=== PATIENT | female | born 1980 | race Caucasian/White ===

== ENCOUNTER 2022-12-08 10:09 | Emergency (ER) | payer OTHER, SELFPAY ==
[2022-12-08 10:26] VITALS: BP 109/80; PULSE 81; RESP 16; TEMP 36.7; O2SAT 100
--- NOTE | 2022-12-08 10:33 | ED.SKABFB ---
HPI - Skin/Abscess/Foreign Bdy General Chief complaint: Skin/Abscess/Foreign Body Stated complaint: Bump above Tailbone Time Seen by Provider: 12/08/22 10:23 Source: patient and RN notes reviewed Mode of arrival: ambulatory Limitations: no limitations History of Present Illness HPI narrative: Patient presents today complaining a painful bump in her tailbone area. States the area became painful in August, but resolved on its own with warm compresses, but returned 2 days ago after sitting for long periods of time at. She currently rates her pain 1/10 while standing, but this increases to 7/10 with sitting. She has tried no dims-wlb-iqenlbm interventions at this time prior to arrival. No history of abscesses/ boils. Related Data Home Medications Medication Instructions Recorded Confirmed armodafinil 250 mg tablet 250 mg PO QAM 03/16/21 12/08/22 aspirin 81 mg tablet,delayed 81 mg PO DAILY 03/16/21 12/08/22 release (Adult Aspirin Regimen) cholecalciferol (vitamin D3) 50 50 mcg PO DAILY 03/16/21 12/08/22 mcg (2,000 unit) chewable tablet ferrous sulfate 27 mg iron tablet 27 mg PO DAILY 03/16/21 12/08/22 fingolimod 0.5 mg capsule (Re[employer]) 0.5 mg PO DAILY 03/16/21 12/08/22 levetiracetam 1,000 mg tablet 1,000 mg PO Q12H 03/16/21 12/08/22 sertraline 100 mg tablet 100 mg PO DAILY 03/16/21 12/08/22 multivit with minerals-iron 18 1 tablet PO DAILY 12/08/22 12/08/22 mg-folic ac 400 mcg-vit K 25 mcg tablet (Adults Multivitamin) vitamin B complex (B 1 tablet PO DAILY 12/08/22 12/08/22 Complex-Vitamin B12 tablet) Allergies Allergy/AdvReac Type Severity Reaction Status Date / Time amoxicillin Allergy Hives Verified 12/08/22 10:28 Penicillins Allergy Hives Verified 03/16/21 15:38 Sulfa (Sulfonamide Allergy Hives Verified 03/16/21 15:38 Antibiotics) Review of Systems Review of Systems: CONSTITUTIONAL: Denies body aches, fever, chills, or sweats. EYES: Denies visual changes, redness, or discharge. ENT: Denies rhinorrhea, congestion, sore throat, or otalgia. CARDIOVASCULAR: Denies chest pain, palpitations, or edema. RESPIRATORY: Denies cough or dyspnea. GASTROINTESTINAL: Denies abdominal pain, nausea, vomiting, or diarrhea. GENITOURINARY: Denies dysuria or hematuria. SKIN: + painful lump MUSCULOSKELETAL: Denies back pain, joint pain, or myalgia. NEUROLOGIC: Denies headache, numbness, tingling, or weakness. PSYCH: Denies depression or anxiety. [facility] Past Medical History Medical History History of cerebral hemorrhage History of seizure Multiple sclerosis Surgical History Surgical History History of bilateral breast reduction surgery History of delivery History of endometrial ablation History of tonsillectomy Family History Family History Mother Lung cancer Father Pulmonary embolism Social History Social History Smoking status: Never smoker Comments At time of signature, I have reviewed and agree with nursing past medical, surgical, social and family history unless otherwise noted. Please see nursing chart for further information. There is no relevant family history pertinent to the presenting complaint Exam Narrative: GENERAL: Well-appearing, well-nourished, and in no acute distress. HEAD: Normocephalic, atraumatic. EYES: EOMI. No redness or drainage. Conjunctivae normal. ENT: Mucous membranes pink and moist. NECK: Normal AROM. CHEST: No respiratory distress. EXTREMITIES: Normal range of motion. No edema. SKIN: Warm, dry, no rash. Capillary refill normal. Normal skin turgor. 2 cm erythematous slightly fluctuant lesion to the gluteal cleft that is tender to palpation. NEURO: No focal deficits. Alert and oriented x3. Gait steady. PSYCH:
[2022-12-08 10:36] VITALS: BP 109/80; PULSE 81; RESP 16; TEMP 36.7; O2SAT 100
== END 2022-12-08 11:05 | disposition home or self-care (01) ==
PROVIDERS: Emergency Provider Nurse Practitioner
DX: L05.01 Pilonidal cyst with abscess (principal); G40.909 Epilepsy, unspecified, not intractable, without status epilepticus; G35 Multiple sclerosis
CPT/HCPCS: 10080; 99213; G0463

== ENCOUNTER 2024-03-06 08:23 | Outpatient (CLI) | payer OTHER, SELFPAY ==
[2024-03-06 21:15] LABS: Cholesterol 227 mg/dL (0-200); HDL Direct 78 mg/dL; Triglycerides 63 mg/dL (<150)
[2024-03-06 21:26] LABS: LDL Cholesterol Direct 111 mg/dL
== END 2024-03-06 08:24 | disposition home or self-care (01) ==
LOC: ANHGOSHLAB 08:25
PROVIDERS: PCP Nurse Practitioner; Visit Provider Nurse Practitioner
DX: E78.5 Hyperlipidemia, unspecified (principal)
CPT/HCPCS: 36415; 80061; 82172

== ENCOUNTER 2024-10-15 08:53 | Outpatient (CLI) | payer OTHER, SELFPAY ==
--- OUTSIDE RECORDS SUMMARY | 2024-10-15 09:19 | XMS_ITS | Clinical Summary ---
Author Organization [facility] [place] Address [address] [place] [address] Phone Care Team Providers Care Driller And Reamer Name Role Phone Dillon Lai MD Primary Care Provider [phone] Allergies Active Allergy Reactions Criticality Noted Date Comments Penicillins Hives High 01/24/2011 Sulfa (Sulfonamide Antibiotics) Hives High 12/31 Medications levetiracetam (KEPPRA) 1,000 mg Oral tablet Take 500 mg by mouth 2 times daily. Active INTERFERON BETA-1B (BETASERON SUBCUT) Inject by subcutaneous injection. Active aspirin (ASPIR-LOW) 81 mg Oral TbEC Take 81 mg by mouth daily. Active VIT/FE FUMARATE/FA ( ORAL) Take by mouth. Active citalopram (CELEXA) 10 mg Oral tablet Take 10 mg by mouth daily. Active BIOTIN ORAL Take by mouth. Act rivas ARMODAFINIL (NUVIGIL ORAL) Take by mouth. For fatigue Active ERGOCALCIFEROL, VITAMIN D2, (VITAMIN D ORAL) Take by mouth. Activ e Active Problems Problem Noted Date Diagnosed Date Multiple sclerosis Subarchnoid hemorrhage-brief coma Seizure disorder Blood clotting disorder Overview (01/24/2011): Heterozygous for Factor II mutation Encounters Date Type Department Care Team Description 10/01/2024 External Device Data [facility]STRACTION Provider, Abstract 09/24/2024 External Device Data [facility] Provider, Abstract 09/19/2024 External Device Data [facility] Provider, Abstract 07/17/2024 External Device Data [facility] Provider, Abstract from Last 3 Months Immunizations Immunization Administration Dates Next Due Skin Test TB 01/20/2011 Family History Medical History Relation Name Comments Stroke Father Relation Name Status Comments Father Social History Tobacco Use Types Packs/Day Years Used Date Smoking Tobacco: Never Smokeless Tobacco: Never Alcohol Use Standard Drinks/Week Comments Yes 4.2 (1 standard drink = 0.6 oz p ure alcohol) Comments No Sex and Gender Information Value Date Recorded Sex Assigned at Not on file Legal Sex 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 Gender Identity Not on file Sexual Orientation Not on file Last Filed Vital Signs Vital Sign Reading Time Taken Comments Blood Pressure 96/68 08/27/2012 1:48 PM CDT Pulse - - Temperature - - Respiratory Rate - - Oxygen Saturation - - Inhaled Oxygen Concentration - - Weight 68 kg (150 lb) 08/27/2012 1:48 PM CDT Height 172.7 cm (5' 8) 08/27/2012 1:48 PM CDT Body Mass Index 22.81 08/27/2012 1:48 PM CDT Plan of Treatment Upcoming Encounters Date Type Department Care Team (Late st Contact Info) Description 12/06/2024 1:00 PM CDT Office Visit [facility] Ear Nose and Throat [address] [address] Wild Presley MD [address] [facility] [facility] [address] [place] [address] Health Maintenance Due Date Last Done Comments HEPATITIS B VACCINES (1 of 3 - 19+ 3-dose series) 2000 HPV/Cotest (21-29) 2002 CERVICAL CANCER SCREENING 10/14/2011 HPV/Cotest (30-65) 10/14/2011 PAP SMEAR 10/14/2011 INFLUENZA VACCINE (#1) 2023 , 02/04/2018, 02/09/2017, Additional history exists DTAP/TDAP/TD VACCINES (2 - Td or Tdap) 03/03/2024 03/03/2014 Preventative Visit- Commercial 05/01/2024 BREAST CANCER SCREENING 11/29/2024 11/30/19 24, 11/13/2023, 11/13/2023 HPV VACCINES Aged Out No longer eligi ble based on patient's age to complete this topic Procedures Procedure Name Priority Date/Time Associated Diagnosis Comments MAMMO DIAG UNI LEFT 3D DEE W OR WO CAD Routine 11/30/2023 8:10 AM CDT Mammogram abnormal from Last 3 Months or Most Recently Relevant to Health Maintenance Results * MAMMO 3D DEE DIAGNOSTIC UNI LT W OR WO CAD (11/30/2023 8:10 AM CDT) Anatomical Region Laterality Modality Breast Left Mammography 11/30/2023 8:10 AM CDT Impressions 11/30/2023 12:34 PM CDT IMPRESSION: No evidence of mass lesion. The area of interest likely represents normal fibroglandular tissue. RECOMMENDATIONS: Bilateral annual screening mammogram. LEFT BREAST OVERALL ASSESSMENT: BI-RADS Category 1. Negative. DICTATION LOCATION: Location [address] [place] [address] 11/30/2023 12:34 PM CDT MAMMOGRAPHY DIGITAL DIAGNOSTIC UNILATERAL LEFT 3-D TOMOGRAPHY WITH OR WITHOUT CAD AND LEFT BREAST ULTRASOUND LIMITED 11/30/2023. HISTORY: The outside mammogram dated 11/13/2023 showed asymmetry in the upper-outer quadrant of the left breast. LEFT MAMMOGRAPHIC FINDINGS: There are scattered fibroglandular tissues in the left breast. The asymmetry in the upper outer quadrant of the left breast is again seen from the middle to posterior depth. It appears to represent normal fibroglandular tissue. No discrete mass or architectural distortion is identified. LEFT BREAST ULTRASOUND FINDINGS: The hand-held targeted ultrasound was performed with particular attention in the upper outer quadrant. No solid or cystic mass is seen. Procedure Note Arlin Mccauley MD - 11/30/2023 MAMMOGRAPHY DIGITAL DIAGNOSTIC UNILATERAL LEFT 3-D TOMOGRAPHY WITH OR WITHOUT CAD AND LEFT BREAST ULTRASOUND LIMITED 11/30/2023. HISTORY: The outside mammogram dated 11/13/2023 showed asymmetry in the upper-outer quadrant of the left breast. LEFT MAMMOGRAPHIC FINDINGS: There are scattered fibroglandular tissues in the left breast. The asymmetry in the upper outer quadrant of the left breast is again seen from the middle to posterior depth. It appears to represent normal fibroglandular tissue. No discrete mass or architectural distortion is identified. LEFT BREAST ULTRASOUND FINDINGS: The hand-held targeted ultrasound was performed with particular attention in the upper outer quadrant. No solid or cystic mass is seen. IMPRESSION: No evidence of mass lesion. The area of interest likely represents normal fibroglandular tissue. RECOMMENDATIONS: Bilateral annual screening mammogram. LEFT BREAST OVERALL ASSESSMENT: BI-RADS Category 1. Negative. DICTATION LOCATION: Location - [facility] Lei Mohan MD MAMMO ORDERABLES Final Result from Last 3 Months or Most Recently Relevant to Health Maintenance Insurance [place] [id number] Care Teams Driller And Reamer Relationship Specialty Start Date End Date Dillon Lai MD PCP - General Internal Medicine 01/18/11
--- OUTSIDE RECORDS SUMMARY | 2024-10-15 09:19 | XMS_ITS | Clinical Summary ---
Author Organization [facility] Address [address] [place] [address] Care Team Providers Care Shoe Fitter Name Role Phone Unknown, Provider Primary Care Provider Unavaila ble Source Comments [facility],non-owned Affiliates and Associated Physician Practices is amultiple site organization consisting of ambulatory clinics and hospital sitesin [place], [place], [place] and [place]. This disclosure is being madepursuant to the Care Everywhere program and may not contain all information available regarding this patient. Last updated 18.[facility] [employer] Allergies Active Allergy Reactions Criticality Noted Date Comments Penicillins 02/23/2017 Sulfa Drugs 02/23/2017 Medications * Be aware that medications may not be up to date on this document. Alwaysverify current medications with the patient. aspirin (ASPIRIN) 81 MG tablet Take 81 mg by mouth once daily Active SERTRALINE HCL PO Active Cholecalciferol (VITAMIN D PO) Activ e levETIRAcetam (KEPPRA) 1000 MG tablet Take 1,000 mg by mouth 2 times daily Active Fingolimod HCl (GILENYA PO) Active Multiple Vitamin (MULTI VITAMIN PO) Active Armodafinil (NUVIGIL PO) Active MAGNESIUM PO Take 1,200 mg by mouth daily Active ferrous sulfate 325 (65 FE) MG tablet Take by mouth once daily Active rOPINIRole (REQUIP) 0.25 MG tablet TAKE 1-2 CAP BY MOUTH 1 HOUR PRIOR TO BEDTIME NEEDED FOR RESTLESS LEGS 1 Active albuterol HFA (PROAIR HFA) 108 (90 Base) MCG/ACT inhalerIndicatio ns:Acute bronchitis, unspecified organism Inhale 2 (two) puffs by mouth 3 times daily as needed 8.5 g 1 Active Active Problems Problem Noted Date Diagnosed Date Coagulation disorder 03/21/2021 Overview (03/21/2021): Heterozygous for Factor II mutation Seizure disorder 03/21/2021 Subarachnoid hemorrhage with brief coma 03/21/20 Restless leg syndrome 04/29/2019 Overview (03/21/2021): Last Assessment & Plan: Ferritin 15 04/29/19. Ropinrole 0.25 mg at night. Risks discussed including excessive gambling and shopping. Follow-up with digital community manager since heavy menses On iron sulfate supplement Chronic intracerebral hemorrhage 10/27/2016 Overview (03/21/2021): Last Assessment & Plan: S/p right parietal hemorrhage based on MRI susceptibility imaging. 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 Risks discussed including cryptococcal meningitis and PML. Increased risk of serious complications if develops coronavirus infection (COVID-19) discussed including pneumonia and possible reviewed. She received her 2nd Moderna COVID-19 vaccine in July 2020. Patient understands the efficacy of vaccination may be reduced on [place] and potentially she may not be protected. I advised her to wear a mask in public and around unvaccinated people. had vasectomy. Continue elliptical Vit D3 5000 IU daily Nuvigil 250 mg as needed for fatigue. Family History Medical History Relation Name Comments Other Father clotting disord er Relation Name Status Comments Father Social History Tobacco Use Types Packs/Day Years Used Date Smoking Tobacco: Former Smokeless Tobacco: Never Comments No Sex and Gender Information Value Date Recorded Sex Assigned at Not on file Legal Sex Female 10:03 PM CDT Gender Identity Not on file Sexual Orientation Not on file Last Filed Vital Signs Vital Sign Reading Time Taken Comments Blood Pressure 104/68 03/12/2021 6:48 PM FIELD SALES CONSULTANT Pulse 69 03/12/2021 6:48 PM FIELD SALES CONSULTANT Temperature 36.7 C (98 F) 03/12/2021 6:48 PM FIELD SALES CONSULTANT Respiratory Rate 16 03/12/2021 6:48 PM FIELD SALES CONSULTANT Oxygen Saturation 97% 03/12/2021 6:48 PM FIELD SALES CONSULTANT Inhaled Oxygen Concentration - - Weight 65.8 kg (145 lb) 01/19/2021 5:14 PM CDT Height 175.3 cm (5' 9) 01/19/2021 5:14 PM CDT Body Mass Index 21.41 01/19/2021 5:14 PM CDT Plan of Treatment Health Maintenance Due Date Last Done Comments LIPID TESTING 1981 MAMMOGRAM 1981 HIV SCREENING 1996 HEPATITIS C SCREENING 10/09/1999 DTAP/TDAP/TD VACCINES (1 - Tdap) 2000 HEPATITIS B VACCINE (1 of 3 - 19+ 3-dose series) 2000 COVID-19 VACCINE ( - 2023-2 5 season) 2023 07/18/2020, 06/20/2020 DEPRESSION SCREENING 05/01/2024 INFLUENZA VACCINE (Season Ended) 2024 ZOSTER VACCINE (1 of 2) 10/14/2031 HIB VACCINE Aged Out No longer eligi ble based on patient's age to complete this topic HPV VACCINE Aged Out No longer eligi ble based on patient's age to complete this topic MENINGOCOCCAL (Group B) VACCINE SHARED DECISION-MAKING Aged Out No longer eligible based on patient's age to complete this topic MENINGOCOCCAL GROUPS A/C/Y/W VACCINE Aged Out No longer eligible b ased on patient's age to complete this topic PNEUMOCOCCAL VACCINE Aged Out No long er eligible based on patient's age to complete this topic Insurance [facility] Care Teams Shoe Fitter Relationship Specialty Start Date End Date Unknown, Provider PCP - General 01/19/21
--- OUTSIDE RECORDS SUMMARY | 2024-10-15 09:19 | XMS_ITS | Referral Summary ---
Author Organization [facility] Address [address] [place] [address] Care Team Providers Care Motion Study Analyst Name Role Phone Lei Mohan MD Unavailable [phone] Hui Ambrose NP Unavailable [phone] Hui Ambrose NP Primary Care Provider [phone] Encounters Date Type Department Care Team Description 10/15/2024 9:30 AM CDT Office Visit [facility] at [address] [phone] Brianna Esquivel PA Arrived 10/02/2024 Results Follow-Up [facility] [address] [facility] [address] [address] El Kelley MD MRI Brain WO Contrast, MRI Cervical Spine WO Contrast 10/02/2024 12:30 PM CDT - 10/02/2024 11:59 PM CDT Hospital Encounter [facility] [address] [place] [address] Multiple sclerosis (HCC) Discharge Disposition: Discharge to home or self care 10/02/2024 12:30 PM CDT - 10/02/2024 11:59 PM CDT Hospital Encounter [facility] [address] [place] [address] Multiple sclerosis (HCC) Discharge Disposition: Discharge to home or self care 09/16/2024 Telephone [facility] [address] [facility] [address] [place] [address] El Kelley MD 09/04/2024 Telephone [facility] Gastroenterology [address] [facility] [address] [place] [address] Yancy Olivas GI Pre Procedure Assessment (Colonoscopy) 08/05/2024 Telephone [facility] Special[facility] Services [facility] [place] [address] Jenniffer Larson RN from Last 3 Months Allergies Active Allergy Reactions Criticality Noted Date Comments Penicillins Sulfa (Sulfonamide Antibiotics) Medications aspirin 81 mg tablet take 1 tablet (81MG) by oral route every day 0 09/21/19 11 Active CYANOCOBALAMIN , VITAMIN B-12, (VITAMIN B-12 ORAL) Take 1,000 mg by mouth 2500 per pt Active cholecalcifero l, vitamin D3, (VITAMIN D3 ORAL) Take 5,000 Units by mouth daily Active ferrous sulfate 325 mg (65 mg of elemental iron) tabletIndicati ons:Iron Deficiency Anemia Take 1 tablet (325 mg total) by mouth daily with breakfast Active sertraline (ZOLOFT) 100 mg tablet TAKE 1 TABLET BY MOUTH EVERY DAY 90 tablet 2 05/30/19 25 Active fingolimod (GILENYA) 0.5 mg capsuleIndicat ions:Multiple sclerosis (HCC) TAKE 1 CAPSULE DAILY 90 capsule 3 06/24/19 25 Active rOPINIRole (REQUIP) 0.25 mg tabletIndicati ons:Restless leg syndrome TAKE 1-2 TABLET BY MOUTH 1 HOUR PRIOR TO BEDTIME NEEDED FOR RESTLESS LEGS 60 tablet 5 09/03/19 25 Active armodafiniL (NUVIGIL) 250 mg tabletIndicati ons:Multiple sclerosis (HCC),Chronic fatigue Take 1 tablet (250 mg total) by mouth daily 30 tablet 4 09/14/19 25 Active levETIRAcetam (KEPPRA) 1,000 mg tablet TAKE 1 TABLET BY MOUTH EVERY 12 HOURS 60 tablet 5 10/01/19 25 Active levETIRAcetam (KEPPRA) 1,000 mg tablet TAKE 1 TABLET BY MOUTH EVERY 12 HOURS 60 tablet 5 03/15/20 24 025 Discontinued Active Problems Problem Noted Date Diagnosed Date Restless leg syndrome 04/29/2019 Assessment & Plan (11/30/2023 8:58 PM CDT): Ferritin 15 04/29/19. Ropinrole 0.25 mg at night. Risks discussed including excessive gambling and shopping. On iron sulfate supplement Assessment & Plan (06/26/2023 5:35 PM AUTOMOTIVE GENERAL MANAGER): Ferritin 15 04/29/19. Ropinrole 0.25 mg at night. Risks discussed including excessive gambling and shopping. Follow-up with pet nutrition specialist since heavy menses On iron sulfate supplement Assessment & Plan (10/28/2022 6:51 AM CDT): Ferritin 15 04/29/19. Ropinrole 0.25 mg at night. Risks discussed including excessive gambling and shopping. Follow-up with pet nutrition specialist since heavy menses On iron sulfate supplement Assessment & Plan (04/28/2022 5:36 PM AUTOMOTIVE GENERAL MANAGER): Ferritin 15 04/29/19. Ropinrole 0.25 mg at night. Risks discussed including excessive gambling and shopping. Follow-up with pet nutrition specialist since heavy menses On iron sulfate supplement Assessment & Plan (10/29/2021 7:26 AM CDT): Ferritin 15 04/29/19. Ropinrole 0.25 mg at night. Risks discussed including excessive gambling and shopping. Follow-up with pet nutrition specialist since heavy menses On iron sulfate supplement Assessment & Plan (04/30/2021 10:02 AM AUTOMOTIVE GENERAL MANAGER): Ferritin 15 04/29/19. Ropinrole 0.25 mg at night. Risks discussed including excessive gambling and shopping. Follow-up with pet nutrition specialist since heavy menses On iron sulfate supplement Assessment & Plan (10/23/2020 7:03 AM CDT): Ferritin 15 04/29/19. Ropinrole 0.25 mg at night. Risks discussed including excessive gambling and shopping. Follow-up with pet nutrition specialist since heavy menses On iron sulfate supplement Assessment & Plan (04/23/2020 8:33 AM AUTOMOTIVE GENERAL MANAGER): Ferritin 15 04/29/19. Ropinrole 0.25 mg at night. Risks discussed including excessive gambling and shopping. Follow-up with pet nutrition specialist since heavy menses On iron sulfate supplement Assessment & Plan (10/23/2019 5:44 PM CDT): Ropinrole 0.25-0.5 mg at night initiation. Risks discussed including excessive gambling and shopping. Ferritin 15 04/29/19. Follow-up with pet nutrition specialist since heavy menses On iron sulfate supplement Assessment & Plan (04/29/2019 3:07 PM AUTOMOTIVE GENERAL MANAGER): Patient declined treatment for now. Gabapentin or ropinrole would be options. Will check ferritin level since has heavy menses (and considering uterine ablation). Generalized tonic-clonic seizure 10/27/2016 Assessment & Plan (11/30/2023 8:57 PM CDT): Keppra 1000 mg BID Assessment & Plan (06/26/2023 5:34 PM AUTOMOTIVE GENERAL MANAGER): Keppra 1000 mg BID Assessment & Plan (10/28/2022 6:50 AM CDT): Keppra 1000 mg BID Assessment & Plan (04/28/2022 5:36 PM AUTOMOTIVE GENERAL MANAGER): Keppra 1000 mg BID Assessment & Plan (10/29/2021 7:26 AM CDT): Keppra 1000 mg BID Assessment & Plan (04/30/2021 10:01 AM AUTOMOTIVE GENERAL MANAGER): Keppra 1000 mg BID Assessment & Plan (10/23/2020 7:02 AM CDT): Keppra 1000 mg BID Assessment & Plan (04/23/2020 8:32 AM AUTOMOTIVE GENERAL MANAGER): Keppra 1000 mg BID Assessment & Plan (10/23/2019 5:42 PM CDT): Keppra 1000 mg BID Assessment & Plan (04/29/2019 3:06 PM AUTOMOTIVE GENERAL MANAGER): Keppra 1000 mg BID Assessment & Plan (11/19/2018 1:49 PM CDT): Keppra 1000 mg BID Assessment & Plan (05/14/2018 6:28 PM AUTOMOTIVE GENERAL MANAGER): Keppra 1000 mg BID Assessment & Plan (11/08/2017 7:55 AM CDT): Keppra 1000 mg BID Assessment & Plan (04/28/2017 2:17 PM AUTOMOTIVE GENERAL MANAGER): Keppra 1000 mg BID Assessment & Plan (10/27/2016 5:27 PM CDT): Keppra 1000 mg BID Chronic intracerebral hemorrhage 10/27/2016 Assessment & Plan (11/30/2023 8:57 PM CDT): S/p right parietal hemorrhage based on MRI susceptibility imaging. Assessment & Plan (06/26/2023 5:34 PM AUTOMOTIVE GENERAL MANAGER): S/p right parietal hemorrhage based on MRI susceptibility imaging. Assessment & Plan (10/28/2022 6:50 AM CDT): S/p right parietal hemorrhage based on MRI susceptibility imaging. Assessment & Plan (04/28/2022 5:36 PM AUTOMOTIVE GENERAL MANAGER): S/p right parietal hemorrhage based on MRI susceptibility imaging. Assessment & Plan (10/29/2021 7:26 AM CDT): S/p right parietal hemorrhage based on MRI susceptibility imaging. Assessment & Plan (04/30/2021 10:01 AM AUTOMOTIVE GENERAL MANAGER): S/p right parietal hemorrhage based on MRI susceptibility imaging. Assessment & Plan (10/23/2020 7:03 AM CDT): S/p right parietal hemorrhage based on MRI susceptibility imaging. Assessment & Plan (04/23/2020 8:32 AM AUTOMOTIVE GENERAL MANAGER): S/p right parietal hemorrhage based on MRI susceptibility imaging. Assessment & Plan (10/23/2019 5:42 PM CDT): S/p right parietal hemorrhage based on MRI susceptibility imaging. Assessment & Plan (04/29/2019 3:06 PM AUTOMOTIVE GENERAL MANAGER): S/p right parietal hemorrhage based on MRI susceptibility imaging. Assessment & Plan (11/19/2018 1:48 PM CDT): S/p right parietal hemorrhage based on MRI susceptibility imaging. Assessment & Plan (05/14/2018 6:28 PM AUTOMOTIVE GENERAL MANAGER): S/p R parietal hemorrhage based on MRI susceptibility imaging. Assessment & Plan (11/08/2017 7:55 AM CDT): S/p R parietal hemorrhage based on MRI susceptibility imaging. Assessment & Plan (04/28/2017 2:17 PM AUTOMOTIVE GENERAL MANAGER): S/p R parietal hemorrhage based on MRI susceptibility imaging. Assessment & Plan (10/27/2016 5:27 PM CDT): S/p R parietal hemorrhage based on MRI susceptibility imaging. Homozygous MTHFR mutation [id number] 10/27/2016 Assessment & Plan (11/30/2023 8:57 PM CDT): Aspirin 81 mg daily Assessment & Plan (06/26/2023 5:36 PM AUTOMOTIVE GENERAL MANAGER): Aspirin 81 mg daily Assessment & Plan (10/28/2022 6:52 AM CDT): Aspirin 81 mg daily Assessment & Plan (04/28/2022 5:36 PM AUTOMOTIVE GENERAL MANAGER): Aspirin 81 mg daily Assessment & Plan (10/29/2021 7:27 AM CDT): Aspirin 81 mg daily Assessment & Plan (04/30/2021 10:02 AM AUTOMOTIVE GENERAL MANAGER): Aspirin 81 mg daily Assessment & Plan (10/23/2020 7:03 AM CDT): Aspirin 81 mg daily Assessment & Plan (04/23/2020 8:33 AM AUTOMOTIVE GENERAL MANAGER): Aspirin 81 mg daily Assessment & Plan (10/23/2019 5:42 PM CDT): Aspirin 81 mg daily Assessment & Plan (04/29/2019 3:08 PM AUTOMOTIVE GENERAL MANAGER): Aspirin 81 mg daily Assessment & Plan (11/19/2018 1:49 PM CDT): Aspirin 81 mg daily Assessment & Plan (05/14/2018 6:29 PM AUTOMOTIVE GENERAL MANAGER): Aspirin 81 mg daily Assessment & Plan (11/08/2017 7:55 AM CDT): Aspirin 81 mg daily Assessment & Plan (04/28/2017 2:16 PM AUTOMOTIVE GENERAL MANAGER): Aspirin 81 mg daily Assessment & Plan (10/27/2016 5:28 PM CDT): Aspirin 81 mg daily Prothrombin gene mutation 10/27/2016 Assessment & Plan (11/30/2023 8:57 PM CDT): Aspirin 81 mg daily Assessment & Plan (06/26/2023 5:36 PM AUTOMOTIVE GENERAL MANAGER): Aspirin 81 mg daily Assessment & Plan (10/28/2022 6:52 AM CDT): Aspirin 81 mg daily Assessment & Plan (04/28/2022 5:36 PM AUTOMOTIVE GENERAL MANAGER): Aspirin 81 mg daily Assessment & Plan (10/29/2021 7:27 AM CDT): Aspirin 81 mg daily Assessment & Plan (04/30/2021 10:02 AM AUTOMOTIVE GENERAL MANAGER): Aspirin 81 mg daily Assessment & Plan (10/23/2020 7:03 AM CDT): Aspirin 81 mg daily Assessment & Plan (04/23/2020 8:33 AM AUTOMOTIVE GENERAL MANAGER): Aspirin 81 mg daily Assessment & Plan (10/23/2019 5:43 PM CDT): Aspirin 81 mg daily Assessment & Plan (04/29/2019 3:08 PM AUTOMOTIVE GENERAL MANAGER): Aspirin 81 mg daily Assessment & Plan (11/19/2018 1:49 PM CDT): Aspirin 81 mg daily Assessment & Plan (05/14/2018 6:29 PM AUTOMOTIVE GENERAL MANAGER): Aspirin 81 mg daily Assessment & Plan (11/08/2017 7:55 AM CDT): Aspirin 81 mg daily Assessment & Plan (04/28/2017 2:16 PM AUTOMOTIVE GENERAL MANAGER): Aspirin 81 mg daily Assessment & Plan (10/27/2016 5:28 PM CDT): Aspirin 81 mg daily 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 Assessment & Plan (11/30/2023 8:57 PM CDT): Sertraline 100 mg daily Assessment & Plan (06/26/2023 5:35 PM AUTOMOTIVE GENERAL MANAGER): Sertraline 100 mg daily Assessment & Plan (10/28/2022 6:51 AM CDT): Sertraline 100 mg daily Assessment & Plan (04/28/2022 5:34 PM AUTOMOTIVE GENERAL MANAGER): Sertraline 100 mg daily Assessment & Plan (10/29/2021 7:26 AM CDT): Sertraline 100 mg daily Assessment & Plan (04/30/2021 10:02 AM AUTOMOTIVE GENERAL MANAGER): Sertraline 100 mg daily Assessment & Plan (10/23/2020 7:04 AM CDT): Sertraline 100 mg daily Assessment & Plan (04/23/2020 8:32 AM AUTOMOTIVE GENERAL MANAGER): Sertraline 100 mg daily Assessment & Plan (10/23/2019 5:44 PM CDT): Sertraline 100 mg daily Assessment & Plan (04/29/2019 3:08 PM AUTOMOTIVE GENERAL MANAGER): Sertraline 100 mg daily Assessment & Plan (11/19/2018 1:49 PM CDT): Sertraline 100 mg daily Assessment & Plan (05/14/2018 6:28 PM AUTOMOTIVE GENERAL MANAGER): Sertraline 100 mg daily Assessment & Plan (11/08/2017 7:54 AM CDT): Sertraline 100 mg daily Mood fair considering mother is imminently going to from metastatic cancer Assessment & Plan (04/28/2017 2:17 PM AUTOMOTIVE GENERAL MANAGER): Sertraline 100 mg daily Assessment & Plan (10/27/2016 5:26 PM CDT): Sertraline Multiple sclerosis 09/14/2013 Overview (08/03/2016): MULTIPLE SCLEROSIS Assessment & Plan (11/30/2023 8:57 PM CDT): Fingolimod 0.5 mg daily. Risks discussed including skin cancer and serious infections including cryptococcal meningitis and PML. Increased risk of serious complications including pneumonia and possibly if she develops COVID-19 infection discussed. She received her 3rd Moderna COVID-19 vaccine on April 19, 2021. Another booster vaccination recommended. Patient understands the efficacy of vaccination may be reduced on fingolimod and potentially she may not be protected. Paxlovid advised if she develops COVID-19. had vasectomy. Exercise encouraged Vit D3 5000 IU daily Nuvigil 250 mg daily MRI brain and cervical spine without contrast September 2024 Assessment & Plan (06/26/2023 5:34 PM AUTOMOTIVE GENERAL MANAGER): Fingolimod 0.5 mg daily. Risks discussed including serious infections including cryptococcal meningitis and PML. Increased risk of serious complications including pneumonia and possibly if she develops COVID-19 infection discussed. She received her 3rd Moderna COVID-19 vaccine on April 19, 2021. Another booster vaccination recommended. Patient understands the efficacy of vaccination may be reduced on fingolimod and potentially she may not be protected. Paxlovid advised if she develops COVID-19. had vasectomy. Exercise encouraged Vit D3 5000 IU daily Nuvigil 250 mg daily MRI brain and cervical spine without contrast September 2024 Assessment & Plan (10/28/2022 6:50 AM CDT): Fingolimod 0.5 mg daily. Risks discussed including cryptococcal meningitis and PML. Increased risk of serious complications including pneumonia and possibly if he develops COVID-19 infection discussed. She received her 3rd Moderna COVID-19 vaccine on April 19, 2021. Another booster vaccination recommended. Patient understands the efficacy of vaccination may be reduced on fingolimod and potentially she may not be protected. Paxlovid advised if she develops COVID-19. had vasectomy. Exercise encouraged Vit D3 5000 IU daily Nuvigil 250 mg daily Assessment & Plan (04/28/2022 5:35 PM AUTOMOTIVE GENERAL MANAGER): Sundar. Risks discussed including cryptococcal meningitis and PML. Increased risk of serious complications including pneumonia and possibly if develops COVID-19 infection discussed. She received her 3rd Moderna COVID-19 vaccine on April 19, 2021. Another booster vaccination recommended. Patient understands the efficacy of vaccination may be reduced on Gilenya and potentially she may not be protected. 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 Paxlovid advised if she develops COVID-19. had vasectomy. Resume elliptical Vit D3 5000 IU daily Nuvigil 250 mg daily MRI brain and cervical spine September 2022 Assessment & Plan (10/29/2021 7:25 AM CDT): Hamzahenya. Risks discussed including cryptococcal meningitis and PML. Increased risk of serious complications if develops coronavirus infection (COVID-19) discussed including pneumonia and possible reviewed. She received her 3rd Moderna COVID-19 vaccine on April 19, 2021. Another booster vaccination recommended. Patient understands the efficacy of vaccination may be reduced on Gilenya and potentially she may not be protected. 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 Paxlovid advised if she develops COVID-19. had vasectomy. Continue elliptical Vit D3 5000 IU daily Nuvigil 250 mg daily MRI brain and cervical spine October 2021 Assessment & Plan (04/30/2021 10:00 AM AUTOMOTIVE GENERAL MANAGER): Trangya. Risks discussed including cryptococcal meningitis and PML. Increased risk of serious complications if develops coronavirus infection (COVID-19) discussed including pneumonia and possible reviewed. She received her 3rd Moderna COVID-19 vaccine on April 19, 2021. Patient understands the efficacy of vaccination may be reduced on Gilenya and potentially she may not be protected. I advised her to wear a mask in public and around unvaccinated people. 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 had vasectomy. Continue elliptical Vit D3 5000 IU daily Nuvigil 250 mg daily. Assessment & Plan (10/23/2020 7:02 AM CDT): Gilenya. Risks discussed including cryptococcal meningitis and PML. [...] Nuvigil 250 mg as needed for fatigue. Assessment & Plan (04/23/2020 8:32 AM AUTOMOTIVE GENERAL MANAGER): Gilenya. Risks discussed including cryptococcal meningitis and PML. Increased risk of serious complications if develops coronavirus infection (COVID-19) discussed including pneumonia and possible reviewed. Patient currently being quarantined since her is symptomatic with COVID-19. She will contact me and her PCP if she becomes symptomatic. Patient wants to continue Gilenya. She is practicing social distancing in teaching remotely. COVID-19 vaccination recommended. Patient understands the efficacy of vaccination may be reduced on Gilenya and potentially she may not be protected. had vasectomy. Continue elliptical Vit D3 5000 IU daily Nuvigil 250 mg as needed for fatigue. MRI brain and cervical spine after COVID-19 vaccination Assessment & Plan (10/23/2019 5:42 PM CDT): Gilenya. Risks discussed including cryptococcal meningitis and PML (28 cases). Increased risk of serious complications if develops coronavirus infection (COVID-19) discussed including pneumonia and possible reviewed. Patient wants to continue Gilenya. She is practicing social distancing. had vasectomy. Continue elliptical Vit D3 5000 IU daily Decrease Nuvigil 225 mg as needed for fatigue. MRI brain and cervical spine June 2020 Assessment & Plan (04/29/2019 3:08 PM AUTOMOTIVE GENERAL MANAGER): Trangya. Risks discussed including cryptococcal meningitis and PML (28 cases). In addition, she understands that her lymphocytes are lower than typical on Gilenya. Nonetheless, patient wants to continue Gilenya. had vasectomy. Ocrevus also discussed. The benefits and risks of Ocrevus discussed including serious infusion reactions, serious infections including respiratory/herpetic/PML infections, harm, and potential malignancy including breast cancer. Resume exercise: Elliptical Vit D3 5000 IU daily Nuvigil 250 mg prn fatigue. MRI brain and cervical spine June 2020 Assessment & Plan (11/19/2018 1:48 PM CDT): Sundar. Risks discussed including cryptococcal meningitis and PML (26 cases). In addition, she understands that her lymphocytes are lower than typical on Gilenya. Nonetheless, patient wants to continue Gilenya. Resume exercise: Elliptical Vit D3 5000 IU daily Nuvigil 250 mg prn fatigue. Assessment & Plan (05/14/2018 6:27 PM AUTOMOTIVE GENERAL MANAGER): Trangya. Risks discussed including cryptococcal meningitis and PML (21 cases). Pt wants to continue. Exercise: Elliptical Vit D3 5000 IU daily Nuvigil 250 mg prn fatigue. Assessment & Plan (11/08/2017 7:55 AM CDT): Sundar. Risks discussed including cryptococcal meningitis and PML (19 cases). Pt wants to continue. Resume exercise: Elliptical and exercise videos Vit D3 5000 IU daily Nuvigil 250 mg prn fatigue. MRI brain and cervical spine March 2018 Assessment & Plan (04/28/2017 2:16 PM AUTOMOTIVE GENERAL MANAGER): Sundar. Risks discussed including cryptococcal meningitis and PML (13 cases). Pt wants to continue. Exercise: Elliptical and exercise videos Vit D3 5000 IU daily Nuvigil 250 mg prn fatigue. MRI brain and cervical spine May 2018 Assessment & Plan (10/27/2016 5:27 PM CDT): Sundar. Risks discussed incl PML. Exercise Vit D3 5000 IU daily Nuvigil 250 mg for fatigue. 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 11/08/2017 Immunizations Immunization Administration Dates Next Due Influenza, Quadrivalent, Spl it, Preservative Free, Intramuscular 02/08/2020,02/04/2018 Influenza, Trivalent, Preservative Free, Intramu scular 02/09/2017,02/19/2015 PPD TEST, UNSPECIFIED 01/20/2011 Tdap 03/03/2014 Social History Tobacco Use Types Packs/Day Years Used Date Smoking Tobacco: Former Smokeless Tobacco: Never Tobacco Cessation:Counseling Given: Not Answered Alcohol Use Standard Drinks/Week Comments Yes 0 (1 standard drink = 0.6 oz pur e alcohol) weekends AUDIT-C Answer Date Recorded Frequency of Alcohol Consumption 2-4 times a mon04/29/2019 Average Number of Drinks Not on file 019 Frequency of Binge Drinking Not on file 04/02 Comments No Sex and Gender Information Value Date Recorded Sex Assigned at Not on file Legal Sex Female 7:30 PM AUTOMOTIVE GENERAL MANAGER Gender Identity Not on file Sexual Orientation Not on file Last Filed Vital Signs Vital Sign Reading Time Taken Comments Blood Pressure 108/68 06/17/2024 12:39 PM AUTOMOTIVE GENERAL MANAGER Pulse 73 06/17/2024 12:39 PM AUTOMOTIVE GENERAL MANAGER Temperature 36.7 C (98.1 F) 11/30/2023 1:24 PM CDT Respiratory Rate 16 10/23/2019 1:38 PM CDT Oxygen Saturation 99% 06/17/2024 12:39 PM AUTOMOTIVE GENERAL MANAGER Inhaled Oxygen Concentration - - Weight 69.4 kg (153 lb) 10/15/2024 9:19 AM CDT Height 175.3 cm (5' 9) 06/17/2024 12:39 PM AUTOMOTIVE GENERAL MANAGER Body Mass Index 22.59 06/17/2024 12:39 PM AUTOMOTIVE GENERAL MANAGER Plan of Treatment Upcoming Encounters Date Type Department Care Team (Late st Contact Info) Description 10/15/2024 9:30 AM CDT Office Visit [facility] at [address] [phone] Brianna Esquivel PA [address] [place] [address] [address] [place], [place] [id number] Arrived 11/18/2024 11:45 AM CDT Hospital Encounter [facility] [id number] [place] [address] Katelynn Williamson MD PhD [address] [place] [address] 11/18/2024 11:45 AM CDT - 11/18/2024 12:30 PM CDT Surgery [facility] [id number] [place] [address] Katelynn Williamson MD PhD [address] [place] [address] COLONOSCOPY Scheduled Procedures Name Priority Associated Diagnoses Date/Ti me COLONOSCOPY Family history of malignant neoplasm of digestive organ 11/18/2024 11:45 AM CDT Procedures Procedure Name Priority Date/Time Associated Diagnosis Comments MRI CERVICAL SPINE WO CONTRAST Schedule Routine, Read Routine (OP Routine) 10/02/2024 2:05 PM CDT Multiple sclerosis (HCC) MRI BRAIN WO CONTRAST Schedule Routine, Read Routine (OP Routine) 10/02/2024 2:05 PM CDT Multiple sclerosis (HCC) SCREENING MAMMOGRAM BILATERAL W JUANJOSE Schedule Routine, Read Routine (OP Routine) 11/13/2023 11:04 AM CDT Screening mammogram for breast cancer SERUM HEPATITIS C AB Routine 07/24/2013 1:00 PM CDT from Last 3 Months or Most Recently Relevant to Health Maintenance Results * MRI Cervical Spine WO Contrast (10/02/2024 2:05 PM CDT) Anatomical Region Laterality Modality Spine N/A Magnetic Resonan ce 10/02/2024 2:42 PM CDT Impressions 10/03/2024 8:27 AM CDT IMPRESSION: No significant interval change in brain and cervical spinal cord white matter lesions. Chronic right mastoid effusion. Interval progression of C5-6 and C6-7 degenerative disc disease with slightly increased Modic type I degenerative endplate marrow edema and stable disc herniations. No spinal cord compression. Dictated by: Bg Syed M.D. The radiology attending physician has personally reviewed this study, and had reviewed and/or edited this written report and agrees with it. Electronically signed by: MD Clayton Sinclair 10/03/2024 8:27 AM CDT EXAMINATION: 1. Magnetic resonance imaging (MRI) of the brain and brainstem without contrast 2. Magnetic resonance imaging (MRI) of the cervical spine without contrast HISTORY: 43 years-old Female with Multiple sclerosis. Assess for interval change. TECHNIQUE: Multiplanar multi-weighted MRI of the brain, brainstem was performed without intravenous contrast using the multiple sclerosis protocol. Multiplanar multi-weighted MRI of the cervical spine was performed without intravenous contrast using the standard protocol. Scanner: [facility] Field Strength: 3T COMPARISON: MRI brain and cervical spine 10/10/2022 FINDINGS: BRAIN: There is no interval change. There are multiple foci of T2W/FLAIR hyperintensity within the brain white matter. This includes periventricular, callosal, cerebellar, cortical or juxtacortical, and brainstem lesions. No T1 hypointense black holes. Imaging to detect the central vein sign was not performed. No acute infarct. No acute intracranial hemorrhage. No mass or mass effect. No hydrocephalus. Visualized flow voids in the [place] and the major dural venous sinuses are unremarkable. Right-sided mastoid effusion. Paranasal sinuses unremarkable. Orbits unremarkable. 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 CERVICAL SPINE: There is no interval change. T2W/STIR hyperintensity is again noted in the left lateral column at C3 and at C5 , left ventral lateral funiculus at C5-6, right lateral columns at C6-7 and in the dorsal column at C7. Multilevel degenerative changes with disc height loss, uncovertebral and facet arthropathy, degenerative endplate changes, osteophytic spurring. Disc bulge at C5-C6 and right subarticular and central disc protrusion at C6-C7 resulting in mild spinal canal narrowing. Modic type I degenerative marrow edema right of midline in the C5 inferior endplate and left of midline in the C6-7 anterior lateral endplates, worse compared to the previous study. Mild to moderate multilevel neural foraminal narrowing. No high-grade spinal canal or neuroforaminal narrowing. No suspicious marrow abnormality. No soft tissue abnormality. Procedure Note Bharath Gunter MD PhD - 10/03/2024 EXAMINATION: 1. Magnetic resonance imaging (MRI) of the brain and brainstem without contrast 2. Magnetic resonance imaging (MRI) of the cervical spine without contrast HISTORY: 43 years-old Female with Multiple sclerosis. Assess for interval change. TECHNIQUE: Multiplanar multi-weighted MRI of the brain, brainstem was performed without intravenous contrast using the multiple sclerosis protocol. Multiplanar multi-weighted MRI of the cervical spine was performed without intravenous contrast using the standard protocol. Scanner: [facility] Field Strength: 3T COMPARISON: MRI brain and cervical spine 10/10/2022 FINDINGS: BRAIN: There is no interval change. There are multiple foci of T2W/FLAIR hyperintensity within the brain white matter. This includes periventricular, callosal, cerebellar, cortical or juxtacortical, and brainstem lesions. No T1 hypointense black holes. Imaging to detect the central vein sign was not performed. No acute infarct. No acute intracranial hemorrhage. No mass or mass effect. No hydrocephalus. Visualized flow voids in the [place] and the major dural venous sinuses are unremarkable. Right-sided mastoid effusion. Paranasal sinuses unremarkable. Orbits unremarkable. 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 CERVICAL SPINE: There is no interval change. T2W/STIR hyperintensity is again noted in the left lateral column at C3 and at C5 , left ventral lateral funiculus at C5-6, right lateral columns at C6-7 and in the dorsal column at C7. Multilevel degenerative changes with disc height loss, uncovertebral and facet arthropathy, degenerative endplate changes, osteophytic spurring. Disc bulge at C5-C6 and right subarticular and central disc protrusion at C6-C7 resulting in mild spinal canal narrowing. Modic type I degenerative marrow edema right of midline in the C5 inferior endplate and left of midline in the C6-7 anterior lateral endplates, worse compared to the previous study. Mild to moderate multilevel neural foraminal narrowing. No high-grade spinal canal or neuroforaminal narrowing. No suspicious marrow abnormality. No soft tissue abnormality. IMPRESSION: IMPRESSION: No significant interval change in brain and cervical spinal cord white matter lesions. Chronic right mastoid effusion. Interval progression of C5-6 and C6-7 degenerative disc disease with slightly increased Modic type I degenerative endplate marrow edema and stable disc herniations. No spinal cord compression. Dictated by: Bg Syed M.D. The radiology attending physician has personally reviewed this study, and had reviewed and/or edited this written report and agrees with it. Electronically signed by: Bharath Gunter MD us El Kelley MD IMG MRI PROCEDURES Final Resu lt * MRI Brain WO Contrast (10/02/2024 2:05 PM CDT) Anatomical Region Laterality Modality Head and Neck N/A Magnetic Resonan ce 10/02/2024 2:26 PM CDT Impressions 10/02/2024 2:42 PM CDT IMPRESSION: No significant interval change in brain and cervical spinal cord white matter lesions. Chronic right mastoid effusion. Interval progression of C5-6 and C6-7 degenerative disc disease with slightly increased Modic type I degenerative endplate marrow edema and stable disc herniations. No spinal cord compression. Dictated by: Bg Syed M.D. The radiology attending physician has personally reviewed this study, and had reviewed and/or edited this written report and agrees with it. Electronically signed by: Bharath Gunter MD Narrative 10/02/2024 2:42 PM CDT EXAMINATION: 1. Magnetic resonance imaging (MRI) of the brain and brainstem without contrast 2. Magnetic resonance imaging (MRI) of the cervical spine without contrast HISTORY: 43 years-old Female with Multiple sclerosis. Assess for interval change. TECHNIQUE: Multiplanar multi-weighted MRI of the brain, brainstem was performed without intravenous contrast using the multiple sclerosis protocol. Multiplanar multi-weighted MRI of the cervical spine was performed without intravenous contrast using the standard protocol. Scanner: yr Field Strength: 3T COMPARISON: MRI brain and cervical spine 10/10/2022 FINDINGS: BRAIN: There is no interval change. There are multiple foci of T2W/FLAIR hyperintensity within the brain white matter. This includes periventricular, callosal, cerebellar, cortical or juxtacortical, and brainstem lesions. No T1 hypointense black holes. Imaging to detect the central vein sign was not performed. No acute infarct. No acute intracranial hemorrhage. No mass or mass effect. No hydrocephalus. Visualized flow voids in the [place] and the major dural venous sinuses are unremarkable. Right-sided mastoid effusion. Paranasal sinuses unremarkable. Orbits unremarkable. 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 CERVICAL SPINE: There is no interval change. T2W/STIR hyperintensity is again noted in the left lateral column at C3 and at C5 , left ventral lateral funiculus at C5-6, right lateral columns at C6-7 and in the dorsal column at C7. Multilevel degenerative changes with disc height loss, uncovertebral and facet arthropathy, degenerative endplate changes, osteophytic spurring. Disc bulge at C5-C6 and right subarticular and central disc protrusion at C6-C7 resulting in mild spinal canal narrowing. Modic type I degenerative marrow edema right of midline in the C5 inferior endplate and left of midline in the C6-7 anterior lateral endplates, worse compared to the previous study. Mild to moderate multilevel neural foraminal narrowing. No high-grade spinal canal or neuroforaminal narrowing. No suspicious marrow abnormality. No soft tissue abnormality. Procedure Note Bharath Gunter MD PhD - 10/02/2024 EXAMINATION: 1. Magnetic resonance imaging (MRI) of the brain and brainstem without contrast 2. Magnetic resonance imaging (MRI) of the cervical spine without contrast HISTORY: 43 years-old Female with Multiple sclerosis. Assess for interval change. TECHNIQUE: Multiplanar multi-weighted MRI of the brain, brainstem was performed without intravenous contrast using the multiple sclerosis protocol. Multiplanar multi-weighted MRI of the cervical spine was performed without intravenous contrast using the standard protocol. Scanner: [facility] Field Strength: 3T COMPARISON: MRI brain and cervical spine 10/10/2022 FINDINGS: BRAIN: There is no interval change. There are multiple foci of T2W/FLAIR hyperintensity within the brain white matter. This includes periventricular, callosal, cerebellar, cortical or juxtacortical, and brainstem lesions. No T1 hypointense black holes. Imaging to detect the central vein sign was not performed. No acute infarct. No acute intracranial hemorrhage. No mass or mass effect. No hydrocephalus. Visualized flow voids in the [place] and the major dural venous sinuses are unremarkable. Right-sided mastoid effusion. Paranasal sinuses unremarkable. Orbits unremarkable. 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 CERVICAL SPINE: There is no interval change. T2W/STIR hyperintensity is again noted in the left lateral column at C3 and at C5 , left ventral lateral funiculus at C5-6, right lateral columns at C6-7 and in the dorsal column at C7. Multilevel degenerative changes with disc height loss, uncovertebral and facet arthropathy, degenerative endplate changes, osteophytic spurring. Disc bulge at C5-C6 and right subarticular and central disc protrusion at C6-C7 resulting in mild spinal canal narrowing. Modic type I degenerative marrow edema right of midline in the C5 inferior endplate and left of midline in the C6-7 anterior lateral endplates, worse compared to the previous study. Mild to moderate multilevel neural foraminal narrowing. No high-grade spinal canal or neuroforaminal narrowing. No suspicious marrow abnormality. No soft tissue abnormality. IMPRESSION: IMPRESSION: No significant interval change in brain and cervical spinal cord white matter lesions. Chronic right mastoid effusion. Interval progression of C5-6 and C6-7 degenerative disc disease with slightly increased Modic type I degenerative endplate marrow edema and stable disc herniations. No spinal cord compression. Dictated by: Bg Syed M.D. The radiology attending physician has personally reviewed this study, and had reviewed and/or edited this written report and agrees with it. Electronically signed by: Bharath Gunter MD us El Kelley MD IMG MRI PROCEDURES Final Resu lt * Screening Mammogram Bilateral W Juanjose (11/13/2023 11:04 AM CDT) Anatomical Region Laterality Modality Breast Bilateral Mammography Narrative 11/14/2023 2:37 PM CDT Mammogram Technique: Bilateral Digital Breast Tomosynthesis, Bilateral C-view 2D Screening mammogram. Views obtained: bilateral craniocaudal and bilateral mediolateral oblique. Computer Aided Detection was performed. Mammogram Findings: This is a baseline study. There are scattered areas of fibroglandular density. There is a focal asymmetry in the posterior upper outer quadrant of the left breast. There is no suspicious abnormality in the right breast. Impression: Focal asymmetry in the left breast requires additional evaluation. Diagnostic mammogram and possible ultrasound of the left breast are recommended at this time. OVERALL FINAL ASSESSMENT: BI-RADS CATEGORY 0: Incomplete: Need additional imaging evaluation. Procedure Note Maria Guadalupe Willis MD - 11/14/2023 Mammogram Technique: Bilateral Digital Breast Tomosynthesis, Bilateral C-view 2D Screening mammogram. Views obtained: bilateral craniocaudal and bilateral mediolateral oblique. Computer Aided Detection was performed. Mammogram Findings: This is a baseline study. There are scattered areas of fibroglandular density. There is a focal asymmetry in the posterior upper outer quadrant of the left breast. There is no suspicious abnormality in the right breast. Impression: Focal asymmetry in the left breast requires additional evaluation. Diagnostic mammogram and possible ultrasound of the left breast are recommended at this time. OVERALL FINAL ASSESSMENT: BI-RADS CATEGORY 0: Incomplete: Need additional imaging evaluation. us Self Screening Mammogram IMG MAMMO PROCEDURES Fi nal Result * Serum Hepatitis C ab (07/24/2013 1:00 PM CDT) HCV ab Non-Reacti ve Non-Reacti ve HISTORICAL RESULTS Serum 07/24/2013 1:00 PM CDT Jack Elliott MD LAB BLOOD ORDERABLES Final Re sult Performing Organization Address City/State/[facility] Co de Phone Number HISTORICAL RESULTS from Last 3 Months or Most Recently Relevant to Health Maintenance Insurance [facility] CHOICE PLUS [facility] CHOICE PLUS [facility] CHOICE PLUS [facility] CHOICE PLUS Member Subscriber Plan / Payer (Ef fective 2016-Present) Name:Bushra Pena Relation to Subscriber:Self Name:Bushra Pena Payer ID:[id number] (NAIC) Type:[facility] HMO/PPO Address: [address] CHOICE PLUS Care Teams Motion Study Analyst Relationship Specialty Start Date End Date Hui Ambrose NP [address] [place], [place] [id number] PCP - General Nurse Practitioner 06/17/24 Lei Mohan MD [address] [facility] [address] [place] [address] Referring Physician Obstetrics and Gynecology 04/30/19 Hui Ambrose NP [address] [facility] [place] [address] Nurse Practitioner Nurse Practitioner 06/17/24
--- OUTSIDE RECORDS SUMMARY | 2024-10-15 09:20 | XMS_ITS | Encounter Summary ---
Author Organization [facility] Address 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) Social History Tobacco Use Types Packs/Day Years Used Date Smoking Tobacco: Never Assessed Comments Unknown Sex and Gender Information Value Date Recorded Sex Assigned at Not on file Legal 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 Gender Identity Not on file Sexual Orientation Not on file documented as of this encounter Plan of Treatment Upcoming Encounters Date Type Department Care Team (Late st Contact Info) Description 12/06/2024 1:00 PM CDT Office Visit [facility] [address] [id number] Wild Presley MD [address] [facility] [address] [place] [address] documented as of this encounter Procedures Procedure Name Priority Date/Time Associated Diagnosis Comments HOMOCYSTEINE Stat 10/20/2008 3:52 PM CDT documented in this encounter Results * HOMOCYSTEINE, SERUM (10/20/2008 3:52 PM CDT) HOMOCYSTEINE CARDIOVASCULAR 4.9 <10.4 umol/L [facility] Comment: Lab test performed by: [facility] [address] [place] [address] OVI HANCOCK MD 10/20/2008 3:52 PM CDT 10/20/2008 4:01 PM CDT us Chavo Bledsoe MD CHEMISTRY ORDERABLES Final R esult INTERFACE SYSTEM Refer to clinic/hospital department [facility] CLIA# [id number] [address] [place] [address] documented in this encounter Visit Diagnoses Diagnosis 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
--- OUTSIDE RECORDS SUMMARY | 2024-10-15 09:20 | XMS_ITS | Clinical Summary ---
Author Organization [facility], formerly [facility] Address [address] [place] [address] Care Team Providers Care Boiler House Supervisor Name Role Phone Lei Mohan MD Unavailable [phone] Hui Ambrose NP Unavailable [phone] Hui Ambrose NP Primary Care Provider [phone] Allergies Active Allergy Reactions Criticality Noted Date [...] supplement Assessment & Plan (06/26/2023 5:35 PM RUBBISH COLLECTOR): Ferritin 15 04/29/19. Ropinrole 0.25 mg at night. Risks discussed including excessive gambling and shopping. Follow-up with cascade operator since heavy menses On iron sulfate supplement Assessment & Plan (10/28/2022 6:51 AM CDT): Ferritin 15 04/29/19. Ropinrole 0.25 mg at night. Risks discussed including excessive gambling and shopping. Follow-up with cascade operator since heavy menses On iron sulfate supplement Assessment & Plan (04/28/2022 5:36 PM RUBBISH COLLECTOR): Ferritin 15 04/29/19. Ropinrole 0.25 mg at night. Risks discussed including excessive gambling and shopping. Follow-up with cascade operator since heavy menses On iron sulfate supplement Assessment & Plan (10/29/2021 7:26 AM CDT): Ferritin 15 04/29/19. Ropinrole 0.25 mg at night. Risks discussed including excessive gambling and shopping. Follow-up with cascade operator since heavy menses On iron sulfate supplement Assessment & Plan (04/30/2021 10:02 AM RUBBISH COLLECTOR): Ferritin 15 04/29/19. Ropinrole 0.25 mg at night. Risks discussed including excessive gambling and shopping. Follow-up with cascade operator since heavy menses On iron sulfate supplement Assessment & Plan (10/23/2020 7:03 AM CDT): Ferritin 15 04/29/19. Ropinrole 0.25 mg at night. Risks discussed including excessive gambling and shopping. Follow-up with cascade operator since heavy menses On iron sulfate supplement Assessment & Plan (04/23/2020 8:33 AM RUBBISH COLLECTOR): Ferritin 15 04/29/19. Ropinrole 0.25 mg at night. Risks discussed including excessive gambling and shopping. Follow-up with cascade operator since heavy menses On iron sulfate supplement Assessment & Plan (10/23/2019 5:44 PM CDT): Ropinrole 0.25-0.5 mg at night initiation. Risks discussed including excessive gambling and shopping. Ferritin 15 04/29/19. Follow-up with cascade operator since heavy menses On iron sulfate supplement Assessment & Plan (04/29/2019 3:07 PM RUBBISH COLLECTOR): Patient declined treatment for now. Gabapentin or ropinrole would be options. Will check ferritin level since has heavy menses (and considering uterine ablation). Generalized tonic-clonic seizure 10/27/2016 Assessment & Plan (11/30/2023 8:57 PM CDT): Keppra 1000 mg BID Assessment & Plan (06/26/2023 5:34 PM RUBBISH COLLECTOR): Keppra 1000 mg BID Assessment & Plan (10/28/2022 6:50 AM CDT): Keppra 1000 mg BID Assessment & Plan (04/28/2022 5:36 PM RUBBISH COLLECTOR): Keppra 1000 mg BID Assessment & Plan (10/29/2021 7:26 AM CDT): Keppra 1000 mg BID Assessment & Plan (04/30/2021 10:01 AM RUBBISH COLLECTOR): Keppra 1000 mg BID Assessment & Plan (10/23/2020 7:02 AM CDT): Keppra 1000 mg BID Assessment & Plan (04/23/2020 8:32 AM RUBBISH COLLECTOR): Keppra 1000 mg BID Assessment & Plan (10/23/2019 5:42 PM CDT): Keppra 1000 mg BID Assessment & Plan (04/29/2019 3:06 PM RUBBISH COLLECTOR): Keppra 1000 mg BID Assessment & Plan (11/19/2018 1:49 PM CDT): Keppra 1000 mg BID Assessment & Plan (05/14/2018 6:28 PM RUBBISH COLLECTOR): Keppra 1000 mg BID Assessment & Plan (11/08/2017 7:55 AM CDT): Keppra 1000 mg BID Assessment & Plan (04/28/2017 2:17 PM RUBBISH COLLECTOR): Keppra 1000 mg BID Assessment & Plan (10/27/2016 5:27 PM CDT): Keppra 1000 mg BID Chronic intracerebral hemorrhage 10/27/2016 Assessment & Plan (11/30/2023 8:57 PM CDT): S/p right parietal hemorrhage based on MRI susceptibility imaging. Assessment & Plan (06/26/2023 5:34 PM RUBBISH COLLECTOR): S/p right parietal hemorrhage based on MRI susceptibility imaging. Assessment & Plan (10/28/2022 6:50 AM CDT): S/p right parietal hemorrhage based on MRI susceptibility imaging. Assessment & Plan (04/28/2022 5:36 PM RUBBISH COLLECTOR): S/p right parietal hemorrhage based on MRI susceptibility imaging. Assessment & Plan (10/29/2021 7:26 AM CDT): S/p right parietal hemorrhage based on MRI susceptibility imaging. Assessment & Plan (04/30/2021 10:01 AM RUBBISH COLLECTOR): S/p right parietal hemorrhage based on MRI susceptibility imaging. Assessment & Plan (10/23/2020 7:03 AM CDT): S/p right parietal hemorrhage based on MRI susceptibility imaging. Assessment & Plan (04/23/2020 8:32 AM RUBBISH COLLECTOR): S/p right parietal hemorrhage based on MRI susceptibility imaging. Assessment & Plan (10/23/2019 5:42 PM CDT): S/p right parietal hemorrhage based on MRI susceptibility imaging. Assessment & Plan (04/29/2019 3:06 PM RUBBISH COLLECTOR): S/p right parietal hemorrhage based on MRI susceptibility imaging. Assessment & Plan (11/19/2018 1:48 PM CDT): S/p right parietal hemorrhage based on MRI susceptibility imaging. Assessment & Plan (05/14/2018 6:28 PM RUBBISH COLLECTOR): S/p R parietal hemorrhage based on MRI susceptibility imaging. Assessment & Plan (11/08/2017 7:55 AM CDT): S/p R parietal hemorrhage based on MRI susceptibility imaging. Assessment & Plan (04/28/2017 2:17 PM RUBBISH COLLECTOR): S/p R parietal hemorrhage based on MRI susceptibility imaging. Assessment & Plan (10/27/2016 5:27 PM CDT): S/p R parietal hemorrhage based on MRI susceptibility imaging. Homozygous MTHFR mutation [id number] 10/27/2016 Assessment & Plan (11/30/2023 8:57 PM CDT): Aspirin 81 mg daily Assessment & Plan (06/26/2023 5:36 PM RUBBISH COLLECTOR): Aspirin 81 mg daily Assessment & Plan (10/28/2022 6:52 AM CDT): Aspirin 81 mg daily Assessment & Plan (04/28/2022 5:36 PM RUBBISH COLLECTOR): Aspirin 81 mg daily Assessment & Plan (10/29/2021 7:27 AM CDT): Aspirin 81 mg daily Assessment & Plan (04/30/2021 10:02 AM RUBBISH COLLECTOR): Aspirin 81 mg daily Assessment & Plan (10/23/2020 7:03 AM CDT): Aspirin 81 mg daily Assessment & Plan (04/23/2020 8:33 AM RUBBISH COLLECTOR): Aspirin 81 mg daily Assessment & Plan (10/23/2019 5:42 PM CDT): Aspirin 81 mg daily Assessment & Plan (04/29/2019 3:08 PM RUBBISH COLLECTOR): Aspirin 81 mg daily Assessment & Plan (11/19/2018 1:49 PM CDT): Aspirin 81 mg daily Assessment & Plan (05/14/2018 6:29 PM RUBBISH COLLECTOR): Aspirin 81 mg daily Assessment & Plan (11/08/2017 7:55 AM CDT): Aspirin 81 mg daily Assessment & Plan (04/28/2017 2:16 PM RUBBISH COLLECTOR): Aspirin 81 mg daily Assessment & Plan (10/27/2016 5:28 PM CDT): Aspirin 81 mg daily Prothrombin gene mutation 10/27/2016 Assessment & Plan (11/30/2023 8:57 PM CDT): Aspirin 81 mg daily Assessment & Plan (06/26/2023 5:36 PM RUBBISH COLLECTOR): Aspirin 81 mg daily Assessment & Plan (10/28/2022 6:52 AM CDT): Aspirin 81 mg daily Assessment & Plan (04/28/2022 5:36 PM RUBBISH COLLECTOR): Aspirin 81 mg daily Assessment & Plan (10/29/2021 7:27 AM CDT): Aspirin 81 mg daily Assessment & Plan (04/30/2021 10:02 AM RUBBISH COLLECTOR): Aspirin 81 mg daily Assessment & Plan (10/23/2020 7:03 AM CDT): Aspirin 81 mg daily Assessment & Plan (04/23/2020 8:33 AM RUBBISH COLLECTOR): Aspirin 81 mg daily Assessment & Plan (10/23/2019 5:43 PM CDT): Aspirin 81 mg daily Assessment & Plan (04/29/2019 3:08 PM RUBBISH COLLECTOR): Aspirin 81 mg daily Assessment & Plan (11/19/2018 1:49 PM CDT): Aspirin 81 mg daily Assessment & Plan (05/14/2018 6:29 PM RUBBISH COLLECTOR): Aspirin 81 mg daily Assessment & Plan (11/08/2017 7:55 AM CDT): Aspirin 81 mg daily Assessment & Plan (04/28/2017 2:16 PM RUBBISH COLLECTOR): Aspirin 81 mg daily Assessment & Plan (10/27/2016 5:28 PM CDT): Aspirin 81 mg daily 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 Assessment & Plan (11/30/2023 8:57 PM CDT): Sertraline 100 mg daily Assessment & Plan (06/26/2023 5:35 PM RUBBISH COLLECTOR): Sertraline 100 mg daily Assessment & Plan (10/28/2022 6:51 AM CDT): Sertraline 100 mg daily Assessment & Plan (04/28/2022 5:34 PM RUBBISH COLLECTOR): Sertraline 100 mg daily Assessment & Plan (10/29/2021 7:26 AM CDT): Sertraline 100 mg daily Assessment & Plan (04/30/2021 10:02 AM RUBBISH COLLECTOR): Sertraline 100 mg daily Assessment & Plan (10/23/2020 7:04 AM CDT): Sertraline 100 mg daily Assessment & Plan (04/23/2020 8:32 AM RUBBISH COLLECTOR): Sertraline 100 mg daily Assessment & Plan (10/23/2019 5:44 PM CDT): Sertraline 100 mg daily Assessment & Plan (04/29/2019 3:08 PM RUBBISH COLLECTOR): Sertraline 100 mg daily Assessment & Plan (11/19/2018 1:49 PM CDT): Sertraline 100 mg daily Assessment & Plan (05/14/2018 6:28 PM RUBBISH COLLECTOR): Sertraline 100 mg daily Assessment & Plan (11/08/2017 7:54 AM CDT): Sertraline 100 mg daily Mood fair considering mother is imminently going to from metastatic cancer Assessment & Plan (04/28/2017 2:17 PM RUBBISH COLLECTOR): Sertraline 100 mg daily Assessment & Plan [...] 2024 Assessment & Plan (06/26/2023 5:34 PM RUBBISH COLLECTOR): Fingolimod 0.5 mg daily. Risks discussed including [...] daily Assessment & Plan (04/28/2022 5:35 PM RUBBISH COLLECTOR): Sundar. Risks discussed including cryptococcal meningitis and [...] Assessment & Plan (10/29/2021 7:25 AM CDT): Sundar. Risks discussed including cryptococcal [...] 2021 Assessment & Plan (04/30/2021 10:00 AM RUBBISH COLLECTOR): Sundar. Risks discussed including cryptococcal meningitis and [...] fatigue. Assessment & Plan (04/23/2020 8:32 AM RUBBISH COLLECTOR): Gilenya. Risks discussed including cryptococcal meningitis and [...] 2020 Assessment & Plan (04/29/2019 3:08 PM RUBBISH COLLECTOR): Gilenya. Risks discussed including cryptococcal meningitis and [...] fatigue. Assessment & Plan (05/14/2018 6:27 PM RUBBISH COLLECTOR): Sundar. Risks discussed including cryptococcal meningitis and [...] 2018 Assessment & Plan (04/28/2017 2:16 PM RUBBISH COLLECTOR): Sundar. Risks discussed including cryptococcal meningitis and PML (13 cases). Pt wants to continue. Exercise: Elliptical and exercise videos Vit D3 5000 IU daily Nuvigil 250 mg prn fatigue. MRI brain and cervical spine May 2018 Assessment & Plan (10/27/2016 5:27 PM CDT): uSndar. Risks discussed incl PML. Exercise Vit D3 5000 IU daily Nuvigil 250 mg for fatigue. 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 11/08/2017 Encounters Date Type Department Care Team Description 10/15/2024 9:30 AM CDT Office Visit [facility] Medical Group Convenient Care at [address] [address] Brianna Esquivel PA Arrived 10/02/2024 12:30 PM CDT - 10/02/2024 11:59 PM CDT Hospital Encounter [facility] [address] [place] [address] Multiple sclerosis (HCC) Discharge Disposition: Discharge to home or self care 10/02/2024 12:30 PM CDT - 10/02/2024 11:59 PM CDT Hospital Encounter [facility] [address] [place] [address] Multiple sclerosis (HCC) Discharge Disposition: Discharge to home or self care 10/02/2024 Results Follow-Up [facility] [address] [facility] [address] [place] [address] El Kelley MD MRI Brain WO Contrast, MRI Cervical Spine WO Contrast 09/16/2024 Telephone [facility] [address] [facility] [address] [place] [address] El Kelley MD 09/04/2024 Telephone [facility] Gastroenterology [address] [facility] Medical Office Building [address] [place] [address] Yancy Olivas GI Pre Procedure Assessment (Colonoscopy) 08/05/2024 Telephone [facility] Specialty Services [address] [place] [phone] Jenniffer Larson RN from Last 3 Months Immunizations Immunization Administration Dates Next Due Influenza, Quadrivalent, Spl it, Preservative Free, Intramuscular 02/08/2020,02/04/2018 Influenza, Trivalent, Preservative Free, Intramu scular 02/09/2017,02/19/2015 PPD TEST, UNSPECIFIED 01/20/2011 Tdap 03/03/2014 Surgical History Surgery Date Site/Laterality Comments TONSILLECTOMY Tonsillectomy REDUCTION MAMMOPLASTY Breast reduction OTHER SURGICAL HISTORY 2010 : Medical History Medical History Date Comments Hx Other Medical Prothrombin gen e mutation Hx Other Medical 2010 ; Comm ents: Uncomplicated and recovery despite multiple potential issues.; Outcome: 39 week 8 lb(s) 12 oz Male Multiple sclerosis (HCC) Multipl e sclerosis Seizure disorder (HCC) Seizure d isorder Hx Other Medical Subarachnoid He morrhage Hx Other Medical Prothrombin Mut ation Hx Other Medical MTHFR mutation Family History Medical History Relation Name Comments Other Father 2 Alive and well; Transient ischemic attack Father 2 Tr ansient ischemic attack; Other Mother 2 Alive and well; Relation Name Status Comments Father 1 Alive Father 2 Mother 1 Alive Mother 2 Social History Tobacco Use Types Packs/Day Years [...] on file Legal Sex Female 7:30 PM RUBBISH COLLECTOR Gender Identity Not on file Sexual Orientation Not on file Obstetrics History Last Filed Vital Signs Vital Sign Reading Time Taken Comments Blood Pressure 108/68 06/17/2024 12:39 PM RUBBISH COLLECTOR Pulse 73 06/17/2024 12:39 PM RUBBISH COLLECTOR Temperature 36.7 C (98.1 F) 11/30/2023 1:24 PM CDT Respiratory Rate 16 10/23/2019 1:38 PM CDT Oxygen Saturation 99% 06/17/2024 12:39 PM RUBBISH COLLECTOR Inhaled Oxygen Concentration - - Weight 69.4 kg (153 lb) 10/15/2024 9:19 AM CDT Height 175.3 cm (5' 9) 06/17/2024 12:39 PM RUBBISH COLLECTOR Body Mass Index 22.59 06/17/2024 12:39 PM RUBBISH COLLECTOR Plan of Treatment Upcoming Encounters Date Type Department Care Team (Late st Contact Info) Description 10/15/2024 9:30 AM CDT Office Visit [facility] Medical Group [facility]ient [facility] at [address] [address] Brianna Esquivel PA [address] [place] [address] [address] [place] [address] Arrived 11/18/2024 11:45 AM CDT Hospital Encounter [facility] Endoscopy [address] [address] Katelynn Williamson MD PhD [address] [facility] [place] [address] 11/18/2024 11:45 AM CDT - 11/18/2024 12:30 PM CDT Surgery [facility] Endoscopy [address] [address] Katelynn Williamson MD PhD [address] [facility] [place] [address] COLONOSCOPY Scheduled Procedures Name Priority Associated Diagnoses Date/Ti me COLONOSCOPY Family history of malignant neoplasm of digestive organ 11/18/2024 11:45 AM CDT Health Maintenance Due Date Last Done Comments Cervical Cancer Screening 1981 Depression Screening 1981 Varicella Vaccines (1 of 2 - 13+ 2-dose series) 1994 Hepatitis B Screening 10/14/1999 Regular Well Visit/Exam 18-64 10/14/1999 Covid-19 Vaccine ( season) 2023 04/19/2021, 07/18/2020, 06/20/2020 DTaP/Tdap/Td Vaccine (2 - Td or Tdap) 03/03/2024 03/03/2014 Breast Cancer Screening-Mammogram 11/12/2024 11/13/2023 Influenza Vaccine (Season Ended) 2024 02/08/2020, 02/04/2018, 02/09/2017, Additional history exists Hepatitis C Screening Completed 07/24/2013 HPV Vaccines Aged Out No longer eligi ble based on patient's age to complete this topic Pneumococcal vaccine <65 Aged Out No longer eligible based on [...] intravenous contrast using the standard protocol. Scanner: [facility] Field Strength: 3T COMPARISON: MRI [...] No hydrocephalus. Visualized flow voids in the [place] and the major dural venous [...] No hydrocephalus. Visualized flow voids in the [place] and the major dural venous [...] it. Electronically signed by: Bharath Gunter MD El Kelley MD IM MRI PROCEDURES Final Resu lt * MRI [...] No hydrocephalus. Visualized flow voids in the [place] and the major dural venous [...] intravenous contrast using the standard protocol. Scanner: [facility] Field Strength: 3T COMPARISON: MRI [...] No hydrocephalus. Visualized flow voids in the [place] and the major dural venous [...] it. Electronically signed by: Bharath Gunter MD El Kelley MD IMG MRI PROCEDURES Final [...] MD LAB BLOOD ORDERABLES Final Re sult HISTORICAL RESULTS from Last 3 Months or Most Recently Relevant to Health Maintenance Insurance CHOICE PLUS [employer] CHOICE PLUS CHOICE PLUS [employer] CHOICE PLUS Member Subscriber Plan / Payer (Ef fective 2016-Present) Name:Bushra Pena Relation to Subscriber:Self Name:Bushra Pena Payer ID:[id number] (NAIC) Type:[employer] HMO/PPO Address: [address] CHOICE PLUS Care Teams Boiler House Supervisor Relationship Specialty Start Date End Date Hui Ambrose NP [address] [place] [address] [place] [address] PCP - General Nurse Practitioner 06/17/24 Lei Mohan MD [address] [address] Referring Physician Obstetrics and Gynecology 04/30/19 Hui Ambroes, BRIANDA [facility] [place] [address] Nurse Practitioner Nurse Practitioner 06/17/24
--- OUTSIDE RECORDS SUMMARY | 2024-10-15 09:20 | XMS_ITS | Encounter Summary ---
Author Organization [facility] Healthcare Address [address] [place] [address] Care Team Providers Care Gin Clerk Name Role Phone Lei Mohan MD Unavailable [phone] Hui Ambrose NP Unavailable [phone] Hui Ambrose NP Primary Care Provider [phone] Encounter Details Date Type Department Care Team (Late st Contact Info) Description 10/15/2024 9:30 AM CDT Office Visit [facility] Medical Group Convenient Care at [address] [address] Brianna Esquivel PA [address] [place] [address] [address] [place] [address] Arrived Social History Tobacco Use Types Packs/Day Years Used Date Smoking Tobacco: Former Smokeless Tobacco: Never Alcohol Use Standard Drinks/Week Comments Yes 0 [...] on file Legal Sex Female 7:30 PM POLITICAL RESEARCHER Gender Identity Not on file Sexual Orientation Not on file documented as of this encounter Last Filed Vital Signs Vital Sign Reading Time Taken Comments Blood Pressure - - Pulse - - Temperature - - Respiratory Rate - - Oxygen Saturation - - Inhaled Oxygen Concentration - - Weight 69.4 kg (153 lb) 10/15/2024 9:19 AM CDT Height - - Body Mass Index 22.59 06/17/2024 12:39 PM POLITICAL RESEARCHER documented in this encounter Plan of Treatment Upcoming Encounters Date Type Department Care Team (Late st Contact Info) Description 11/18/2024 11:45 AM CDT Hospital Encounter [facility] Endoscopy [address] [place] [address] Katelynn Williamson MD PhD [address] [facility] [place] [address] 11/18/2024 11:45 AM CDT - 11/18/2024 12:30 PM CDT Surgery [facility] Endoscopy [address] [address] Katelynn Williamson MD PhD [address] [facility] [place] [address] COLONOSCOPY Scheduled Procedures Name Priority Associated Diagnoses Date/Ti me COLONOSCOPY Family history of malignant neoplasm of digestive organ 11/18/2024 11:45 AM CDT documented as of this encounter Visit Diagnoses Not on filedocumented in this encounter Care Teams Gin Clerk Relationship Specialty Start Date End Date Hui Ambrose NP [address] [place] [address] [place] [address] PCP - General Nurse Practitioner 06/17/24 Lei Mohan MD [address] [facility] [address] [place] [address] Referring Physician Obstetrics and Gynecology 04/30/19 Hui Ambrose NP [address] [place] [address] [place] [address] Nurse Practitioner Nurse Practitioner 06/17/24 documented as of this encounter
--- OUTSIDE RECORDS SUMMARY | 2024-10-15 09:20 | XMS_ITS | Encounter Summary ---
Author Organization [facility] Healthcare Address [address] [place] [address] Care Team Providers Care [employer]um [employer] Hospitalist Name Role Phone Lei Mohan MD Unavailable [phone] Hui Ambrose NP Unavailable [phone] Hui Ambrose NP Primary Care Provider [phone] Reason for Referral * Consultation (Routine) - Pending Review Specialty Diagnoses / Procedures Referred By Vikas yao Referred To Contact Otolaryngology Diagnoses Chronic inflammation of right mastoid cavity Casimiro Chavarria PA [address] [place] [address] Phone: tel: fax: External Order Referral ID Status Reason Start Date Expiration Date Visits Requested Visits Authorized [id number] Pending Review Specialty Services Required 10/11/2024 11/10/2025 1 1 Question Answer Please select the performing region: External Order [171] # of visits: 1 Comments [facility] Ear, Nose and Throat Dr. Wild Presley [address] 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 documented in this encounter Plan of Treatment Upcoming Encounters Date Type Department Care Team (Late st Contact Info) Description 10/15/2024 9:30 AM CDT Office Visit [facility] Medical Group Convenient Care at [place] [phone] Brianna Esquivel PA [address] [place] [address] [address] [place] [address] Arrived 11/18/2024 11:45 AM CDT Hospital Encounter [facility] Endoscopy [address] [place] [address] Katelynn Williamson MD PhD [address] [place] [address] 11/18/2024 11:45 AM CDT - 11/18/2024 12:30 PM CDT Surgery [facility] Endoscopy [address] [place] [address] Katelynn Williamson MD PhD [address] [place] [address] COLONOSCOPY Scheduled Procedures Name Priority Associated Diagnoses Date/Ti me COLONOSCOPY Family history of malignant neoplasm of digestive organ 11/18/2024 11:45 AM CDT Scheduled Referrals Name Type Priority Associated Diagnoses Orde r Schedule Ambulatory referral to ENT Outpatient Referral Routine Chronic inflammation of right mastoid cavity 1 Occurrences starting 10/11/2024 until 10/11/2025 documented as of this encounter Visit Diagnoses Diagnosis Chronic inflammation of right mastoid cavity- Primary Family history of malignant neoplasm of digestive organ Family history of malignant neoplasm of gastrointestinal tract documented in this encounter Care Teams [employer] Hospitalist Relationship Specialty Start Date End Date Hui Ambrose NP [address] [place] [address] [place], [place] [id number] PCP - General Nurse Practitioner 06/17/24 Lei Mohan MD [address] [address] Referring Physician Obstetrics and Gynecology 04/30/19 Hui Ambrose NP [address] [place] [address] [place], [place] [id number] Nurse Practitioner Nurse Practitioner 06/17/24 documented as of this encounter
[2024-10-15 19:16] LABS: Basophils Percent Auto 0.5 % (0.2-1.2); Eosinophils Absolute Auto 0.1 K/mm3 (0-0.3); Eosinophils Percent Auto 2.7 % (0-4.4); Hematocrit 41.5 % (37.0-47.0); Hemoglobin 13.6 g/dL (12.0-15.0); Immature Granulocyte Absolute 0.02 K/mm3 (0.00-0.031); Immature Granulocyte Percent A 0.5 % (0-0.5); Lymphocytes Absolute Auto 0.28 K/mm3 (0.9-3.2); Lymphocytes Percent Auto 6.3 % (18.3-44.2); Mean Corpuscular HGB Conc 32.8 g/dl (32-36); Mean Corpuscular Hemoglobin 31.1 pg (26-34); Mean Platelet Volume 10.5 fl (7.4-10.4); Monocytes Absolute Auto 0.5 K/mm3 (0.1-0.6); Monocytes Percent Auto 10.9 % (2.6-8.5); Neutrophils Absolute Auto 3.5 K/mm3 (1.3-6.7); Neutrophils Percent Auto 79.1 % (45.5-73.1); Platelet Count Result 205 k/mm3 (150-375); Red Blood Count 4.37 M/mm3 (4.2-5.4); Red Cell Distribution Width 12.7 % (11.5-14.5); White Blood Count 4.4 K/mm3 (4.5-10.0)
[2024-10-15 19:50] LABS: Alanine Aminotransferase 27 U/L (6-35); Albumin Level 4.4 g/dL (3.5-5.1); Alkaline Phosphatase 26 U/L (38-126); Anion Gap 6 mmol/L (4-12); Aspartate Amino Transferase 29 U/L (14-36); Bilirubin,Total 0.4 mg/dL (0.2-1.3); Blood Urea Nitrogen 10 mg/dL (7-17); Calcium 9.3 mg/dL (8.4-10.2); Carbon Dioxide 25 mmol/L (22-30); Chloride 108 mmol/L (98-107); Cholesterol 239 mg/dL (0-200); Estimated Glomerular Filt Rate > 60; Glucose 106 mg/dL (65-110); HDL Direct 75 mg/dL; Potassium 4.2 mmol/L (3.4-5.0); Sodium 139 mmol/L (137-145); Total Protein 6.9 g/dL (6.3-8.2); Triglycerides 82 mg/dL (<150)
[2024-10-15 20:01] LABS: LDL Cholesterol Direct 115 mg/dL
== END 2024-10-15 08:54 | disposition home or self-care (01) ==
LOC: ANHGOSHLAB 08:55
PROVIDERS: PCP Nurse Practitioner; Visit Provider Nurse Practitioner
DX: E78.2 Mixed hyperlipidemia (principal); Z13.29 Encounter for screening for other suspected endocrine disorder
CPT/HCPCS: 36415; 80053; 80061; 85025